=== PATIENT | female | born 1935 | race Caucasian/White ===

== ENCOUNTER 2018-08-27 12:23 | Emergency (ER) | payer MEDICARE, OTHER, SELFPAY ==
--- NOTE | 2018-08-27 12:30 | ED.RN ---
CPR in progress. Patient arrived via [facility]
--- NOTE | 2018-08-27 12:33 | ED.VIS.GEN ---
History of Present Illness Chief Complaint: CPR Detail of Chief Complaint: Cardiopulmonary arrest Informant: Patient, Director Of Cardiopulmonary Services Onset: Today Context: Sudden Onset Timing: Continuous Quality: Unresponsive Location: Eating establishment Current Severity: Severe Maximum Severity: Severe Worsened by: Unknown Relieved by: Nothing Associated Symptoms: Unobtainable Narrative: Patient is an elderly woman who was eating at the barn. She stood up to get more food from the salad bar. She collapsed. animal control officer on scene. She was hooked up to an AED. Shock was advised. Please officer delivered shock. CPR was re-instituted. Next rhythm check revealed V. fib. Shock was advised and given. Paramedics state she was at one point in V. tach. They also noted wide-complex pulseless activity. Appropriate ACLS algorithm was followed for the different rhythms. Past Medical History Prior records reviewed: No Past Medical History: - - Unknown Lives: Alone Review of Systems ROS: Unable to Obtain Physical Exam Inital Vital Signs reviewed: Yes General: Well nourished, Well developed, Obese Head: Normocephalic, Atraumatic Eyes: Negative for: Perrl, EOMI, Pale conjunctiva, Scleral icterus ENT: No rhinorrhea, TM's clear Cardiovascular: - - No heart tones noted. Respiratory: - - Airway in place and patient ventilated by squad Abdomen: Soft Rectal: Deferred Back: Normal Inspection Extremities: Edema Skin: Cyanosis, Pallor, - - And mottled Neurological: - - GCS is 3T Diagnostic/Tx/Re-eval - Medical Decision Making Paramedics report wide-complex rhythm on monitor. Since no heart tones were appreciated transthoracic echo was performed by me which revealed no cardiac activity. Patient was placed on our monitor and noted in asystole 2 different leads. 55 minutes past since patient collapsed. With unresponsive dilated pupils no cardiac activity and asystole on the monitor patient was pronounced. She was pronounced at 1231. ED Disposition - Plan for ED Patient: Diagnosis: Cardiopulmonary arrest V. fib
--- NOTE | 2018-08-27 12:42 | ED.DCSUM_ITS ---
History of Present Illness Chief Complaint: CPR Detail of Chief Complaint: Cardiopulmonary arrest Informant: Patient, Sagger Soak Onset: Today Context: Sudden Onset Timing: Continuous Quality: Unresponsive Location: Eating establishment Current Severity: Severe Maximum Severity: Severe Worsened by: Unknown Relieved by: Nothing Associated Symptoms: Unobtainable Narrative: Patient is an elderly woman who was eating at the barn. She stood up to get more food from the salad bar. She collapsed. liaison officer on scene. She was hooked up to an AED. Shock was advised. Please officer delivered shock. CPR was re-instituted. Next rhythm check revealed V. fib. Shock was advised and given. Paramedics state she was at one point in V. tach. They also noted wide- complex pulseless activity. Appropriate ACLS algorithm was followed for the different rhythms. Past Medical History Prior records reviewed: No Past Medical History: - - Unknown Lives: Alone Review of Systems ROS: Unable to Obtain Physical Exam Inital Vital Signs reviewed: Yes General: Well nourished, Well developed, Obese Head: Normocephalic, Atraumatic Eyes: Negative for: Perrl, EOMI, Pale conjunctiva, Scleral icterus ENT: No rhinorrhea, TM's clear Cardiovascular: - - No heart tones noted. Respiratory: - - Airway in place and patient ventilated by squad Abdomen: Soft Rectal: Deferred Back: Normal Inspection Extremities: Edema Skin: Cyanosis, Pallor, - - And mottled Neurological: - - GCS is 3T Diagnostic/Tx/Re-eval - Medical Decision Making Paramedics report wide-complex rhythm on monitor. Since no heart tones were appreciated transthoracic echo was performed by me which revealed no cardiac activity. Patient was placed on our monitor and noted in asystole 2 different leads. 55 minutes past since patient collapsed. With unresponsive dilated pupils no cardiac activity and asystole on the monitor patient was pronounced. She was pronounced at 1231. ED Disposition - Plan for ED Patient: Diagnosis: Cardiopulmonary arrest V. fib
--- NOTE | 2018-08-27 13:47 | CHAPLAIN ---
Type of Pastoral Visit ___ Initial Visit ___ Follow-up Visit ___ On-call Visit ___ General Patient Visit ___ Spiritual Assessment ___ Family Conference _x__ Bereavement ___ Rapid Response ___ Code Blue ___ Other (describe below) Pastoral Care Referral From ___ Patient _x__ Family ___ Nurse ___ Physician _x__ Street Cleaning Equipment Operator ___ Script Manager ___ Other (describe below) Sacrament/Intervention _x__ Active listening ___ Anointing ___ Congregation _x__ Bereavement ___ Communion ___ Ayse exploration ___ ___ Life review _x__ Prayer ___ Reconciliation ___ Sacrament of Sick _x__ Supportive presence ___ Wedding ___ Other (describe below) Pastoral Comments met with family members' and offered support and prayers; Father Jesse of [employer] arrived for the Last Rites and this civil draftsman introduced family and gave escort to room; presence given
== END 2018-08-27 15:16 ==
PROVIDERS: Emergency Provider Emergency Medicine; Family Provider Family Medicine; PCP Family Medicine
DX: I46.9 Cardiac arrest, cause unspecified (principal); I49.01 Ventricular fibrillation; E66.9 Obesity, unspecified
CPT/HCPCS: 92950; 99285; A4216